=== PATIENT | female | born 1995 | race Caucasian/White ===

== ENCOUNTER → 2018-05-09 15:26 | Outpatient (CLI) | payer OTHER, SELFPAY ==
[2018-05-09 17:14] LABS: HIV - WCH Non-Reactive (Nonreactive)
[2018-05-09 18:34] LABS: Chlamydia Trachomatis by PCR Negative (Negative); Neisserai gonorrhoeae by PCR Negative (Negative); Probe Check PASS; Sample Adequacy Control PASS; Specimen Processing Control PASS
[2018-05-11 13:18] LABS: HEPATITIS B SURFACE AG Negative (Negative); Hep C Antibodies 0.1 s/co ratio (0.0-0.9)
[2018-05-12 02:05] LABS: Rapid Plasmin Reagin (RPR) NONREACTIVE (NONREACTIVE)
[2018-05-12 13:08] LABS: HPV Reflexed? NOT INDICATED
== END ==
PROVIDERS: Visit Provider Obstetrics & Gynecology
DX: Z11.3 Encounter for screening for infections with a predominantly sexual mode of transmission (principal); Z12.4 Encounter for screening for malignant neoplasm of cervix
CPT/HCPCS: 86592; 86703; 86803; 87340; 87491; 87591; 87624; 88175; G0145